=== PATIENT | male | born 1945 | race Caucasian/White ===

== ENCOUNTER → 2025-06-08 | Day surgery (SDC) | payer MEDICARE, OTHER ==
[2025-06-07 14:27] LABS: BASOPHILS % 0.7 % (0.0-1.0); EOSINOPHILS % 7.4 % (0.0-6.0); LYMPHOCYTES % 12.5 % (18.0-39.1); MONOCYTES % 6.9 % (4.4-11.3); NEUTROPHILS % 72.4 % (38.7-80.0); RED CELL DISTRIBUTION WIDTH 14.2 % (11.7-14.4)
[2025-06-07 14:47] LABS: EST GLOMERULAR FILTRATION RATE 19.0 ML/MIN (>=60)
[~2025-06-08] MED LIST: ACETAMINOPHEN 1000 MG/100 ML 100 ML IV ONE; ARICEPT5 MG PO; ASPIRIN81 MG PO; AZILECT0.5 MG PO; DEXAMETHASONE SOD PHOS INJ 4 MG/ML SDV ONE; FENTANYL CITRATE/PF 100MCG/2 ML INJ ONE; LIDOCAINE HCL 2% LOCAL INJ 5 ML SDV VIAL INJ ONE; MIDODRINE HCL5 MG PO; ONDANSETRON HCL INJ 2MG/ML 2ML 2 MG/ML VIAL ONE; PRAVASTATIN SOD20 MG PO; PROPOFOL IV EMULSION 10 MG/ML 20 ML VIAL ONE; ROCURONIUM BROMIDE 0 ML IV ONE; SEVOFLURANE INHAL SOLN 250 ML PEN BTL ONE; SINEMET 25-1001 EACH PO; VITAMIN D250 MCG
[2025-06-08] MEDS: MEROPENEM 1 GM VIAL ONE (10:36)
[2025-06-08] MEDS: SODIUM CHLORIDE 0.9% 1000ML 1,000 ML ONE (10:37)
[2025-06-08 12:05] VITALS: BP 156/77; PULSE 64; RESP 19; O2SAT 98
== END | disposition home or self-care (01) ==
LOC: OR 09:19
PROVIDERS: ATTEND Urology
DX: R33.8 Other retention of urine (principal); N39.0 Urinary tract infection, site not specified; N21.0 Calculus in bladder; N40.0 Benign prostatic hyperplasia without lower urinary tract symptoms; N26.1 Atrophy of kidney (terminal); N20.0 Calculus of kidney; N31.9 Neuromuscular dysfunction of bladder, unspecified; N32.89 Other specified disorders of bladder; N13.30 Unspecified hydronephrosis; I25.10 Atherosclerotic heart disease of native coronary artery without angina pectoris; I10 Essential (primary) hypertension; G20.A1 Parkinson's disease without dyskinesia, without mention of fluctuations; F02.80 Dementia in other diseases classified elsewhere, unspecified severity, without behavioral disturbance, psychotic disturbance, mood disturbance, and anxiety; Z01.810 Encounter for preprocedural cardiovascular examination; Z01.812 Encounter for preprocedural laboratory examination; Z01.818 Encounter for other preprocedural examination; Z79.82 Long term (current) use of aspirin; Z79.899 Other long term (current) drug therapy; Z95.5 Presence of coronary angioplasty implant and graft; Z91.81 History of falling
CPT/HCPCS: 36415; 51040; 52310; 71046; 74420; 80048; 85025; 87086; 87186; 88300; 93005; J0131; J1100; J2003; J2185; J2405; J2704; J3010; J7030